=== PATIENT | male | born 1955 | race Caucasian/White ===

== ENCOUNTER → 2020-10-27 | Outpatient (CLI) | payer MEDICARE, BC | LOC: CT 10:00 | DX: C15.9 Malignant neoplasm of esophagus, unspecified (principal); R91.1 Solitary pulmonary nodule; K44.9 Diaphragmatic hernia without obstruction or gangrene | CPT/HCPCS: 36415; 71260; 82565; 84520; Q9967 ==

== ENCOUNTER 2021-08-19 21:35 | Emergency (ER) | payer MEDICARE, BC ==
[2021-08-19 22:47] LABS: HEMOGLOBIN 13.2 gm/dl (14.0-17.5); RED BLOOD COUNT 4.27 M/UL (4.20-5.50); WHITE BLOOD COUNT 3.9 K/UL (4.5-11.0)
[2021-08-19 23:16] LABS: BUN/CREATININE RATIO 14 (0-10)
== END 2021-08-20 05:11 | disposition home or self-care (01) ==
LOC: ER1 21:35
PROVIDERS: Physician Assistant
DX: R10.9 Unspecified abdominal pain (principal); R11.2 Nausea with vomiting, unspecified; Z85.01 Personal history of malignant neoplasm of esophagus; Z90.89 Acquired absence of other organs
CPT/HCPCS: 80053; 82550; 82553; 83874; 84484; 85025; 93005; 96374; 99284; J2405; Q9967

== ENCOUNTER → 2021-12-08 | Outpatient (CLI) | payer MEDICARE, BC | LOC: LAB 10:28 | DX: R13.10 Dysphagia, unspecified (principal); Z20.822 Contact with and (suspected) exposure to COVID-19 | CPT/HCPCS: U0003 ==